=== PATIENT | male | born 1960 | race Caucasian/White ===

== ENCOUNTER 2019-06-24 05:49 | Day surgery (SDC) | payer BC ==
[~2019-06-24] VITALS: Ht 182.9 cm; Wt 132.0 kg
[2019-06-24 06:20] VITALS: BP 142/80
== END 2019-06-24 13:15 | disposition home or self-care (01) ==
LOC: OUT 05:49
PROVIDERS: ATTEND Orthopaedic Surgery Orthopaedic Surgery of the Spine
DX: M54.17 Radiculopathy, lumbosacral region (principal); M48.07 Spinal stenosis, lumbosacral region; I25.2 Old myocardial infarction; Z88.8 Allergy status to other drugs, medicaments and biological substances
CPT/HCPCS: 63047; 63048; 72100; 72114; J0171; J0330; J0690; J1100; J2250; J2405; J2550; J2704; J2765; J3010; J3260; J3370; J3490; J7120